=== PATIENT | female | born 1945 | race Caucasian/White ===

== ENCOUNTER 2017-02-18 18:50 | Emergency (ER) | payer OTHER ==
[~2017-02-18] VITALS: Ht 170.2 cm; Wt 106.6 kg
[2017-02-18 19:48] LABS: MCV 93.8 FL (83-99); MEAN PLAT.VOLUME 10.1 uM^3 (9.5-12.4); PLATELET COUNT 240 K/uL (156-360); RBC DIS.WIDTH-CV 13.7 % (11.8-14.6); RBC DIS.WIDTH-SD 47.3 % (39-53); WHITE BLOOD COUNT 7.5 K/uL (4.1-10.2)
[2017-02-18 19:59] LABS: CHLORIDE 108 mEq/L (99-109); POTASSIUM 4.2 mEq/L (3.7-5.4); SODIUM 145 mEq/L (136-147)
[2017-02-18 20:01] LABS: GLUCOSE 104 mg/dL (70-99)
[2017-02-18 20:02] LABS: ANION GAP 12 MEQ/L (2-14)
[2017-02-18 20:05] LABS: GFR ESTIMATE (CALCULATED) > 59 mL/min/
[2017-02-18 20:06] LABS: UREA NITROGEN (BUN) 13 mg/dL (9-23)
[2017-02-18 20:13] LABS: TROP-I INTERPRETATION NEGATIVE; TROPONIN-I < 0.01 ng/mL (0.0-0.30)
[2017-02-18] MEDS ORDERED: PREDNISONE20 MG PO (21:24)
[2017-02-18] MEDS ORDERED: PROAIR HFA8.5 GM IH (21:24)
[2017-02-18 21:35] VITALS: BP 144/90
== END 2017-02-18 21:37 | disposition home or self-care (01) ==
LOC: EME 18:50
DX: J44.9 Chronic obstructive pulmonary disease, unspecified (principal); J45.909 Unspecified asthma, uncomplicated; I10 Essential (primary) hypertension; Z87.891 Personal history of nicotine dependence
CPT/HCPCS: 71020; 80048; 83880; 84484; 85027; 93005; 94640; 99281; 99284; J7512

== ENCOUNTER 2017-11-10 15:47 | Inpatient (IN) | payer OTHER ==
[~2017-11-10] VITALS: Ht 170.2 cm; Wt 98.2 kg
[~2017-11-10 15:47] MED LIST: PREDNISONE20 MG PO; PROAIR HFA8.5 GM IH
[2017-11-10 16:43] LABS: BASOPHIL (%) 0.2 % (0-1); EOSINOPHIL (%) 0.3 % (0-5); HEMATOCRIT 42.6 % (36.0-46.0); HEMOGLOBIN 13.8 G/DL (11.9-15.5); IMMATURE GRANULOCYTE (%) 0.5 % (0.0-0.7); LYMPHOCYTE (%) 11.9 % (15-42); LYMPHOCYTE COUNT 1.7 K/uL (1.0-2.8); MCH 30.4 PG (29.0-34.0); MCHC 32.4 G/DL (30.0-36.0); MCV 93.8 FL (83-99); MONOCYTE (%) 8.2 % (3-12); MONOCYTE COUNT 1.2 K/uL (0-0.8); NEUTROPHIL (%) 78.9 % (45-76); PLATELET COUNT 321 K/uL (156-360); RBC DIS.WIDTH-CV 13.4 % (11.8-14.6); RBC DIS.WIDTH-SD 46.3 % (39-53); RED BLOOD COUNT 4.54 M/uL (3.80-5.20)
[2017-11-10 16:47] LABS: CHLORIDE 107 mEq/L (99-109); POTASSIUM 3.5 mEq/L (3.7-5.4); SODIUM 140 mEq/L (136-147)
[2017-11-10 16:49] LABS: GLUCOSE 136 mg/dL (70-99)
[2017-11-10 16:53] LABS: CREATININE 0.7 mg/dL (0.6-1.3); GFR ESTIMATE (CALCULATED) > 59 mL/min/
[2017-11-10 16:54] LABS: UREA NITROGEN (BUN) 15 mg/dL (9-23)
[2017-11-10 17:00] LABS: TROP-I INTERPRETATION NEGATIVE; TROPONIN-I 0.02 ng/mL (0.0-0.30)
[2017-11-10] MEDS ORDERED: LEVOTHYROXINE200 MC1 PO (20:06)
[2017-11-10] MEDS ORDERED: VALSARTAN160 MG PO (20:06)
[2017-11-10] MEDS ORDERED: MONTELUKAST SOD10 MG PO (20:08)
[2017-11-10] MEDS ORDERED: INCRUSE ELLI62.5 MCG IH (20:08)
[2017-11-10] MEDS ORDERED: ADVAIR 250/501 DISK IH (20:09)
[2017-11-10] MEDS ORDERED: ALBUTEROL2.5 MG/3 M IH (20:12)
[2017-11-10 21:56] VITALS: BP 171/91
[2017-11-10 23:12] VITALS: BP 143/73
[2017-11-11 03:07] VITALS: BP 137/76
[2017-11-11 07:50] VITALS: BP 125/91
[2017-11-11 16:11] VITALS: BP 134/65
[2017-11-11 20:42] VITALS: BP 122/66
[2017-11-12 00:30] VITALS: BP 127/68
[2017-11-12 06:04] VITALS: BP 132/70
[2017-11-12 07:01] LABS: BASOPHIL (%) 0.1 % (0-1); EOSINOPHIL (%) 0 % (0-5); HEMATOCRIT 40.4 % (36.0-46.0); HEMOGLOBIN 12.6 G/DL (11.9-15.5); IMMATURE GRANULOCYTE (%) 0.9 % (0.0-0.7); LYMPHOCYTE COUNT 0.8 K/uL (1.0-2.8); MCH 29.8 PG (29.0-34.0); MCHC 31.2 G/DL (30.0-36.0); MCV 95.5 FL (83-99); MONOCYTE (%) 3.5 % (3-12); MONOCYTE COUNT 0.5 K/uL (0-0.8); NEUTROPHIL (%) 89.5 % (45-76); NEUTROPHIL COUNT 11.7 K/uL (1.8-6.4); PLATELET COUNT 345 K/uL (156-360); RBC DIS.WIDTH-CV 13.9 % (11.8-14.6); RBC DIS.WIDTH-SD 48.7 % (39-53); RED BLOOD COUNT 4.23 M/uL (3.80-5.20); WHITE BLOOD COUNT 13.1 K/uL (4.1-10.2)
[2017-11-12 07:17] LABS: CHLORIDE 107 MEQ/L (99-109); CREATININE 0.7 MG/DL (0.6-1.3); GFR ESTIMATE (CALCULATED) > 59 mL/min/; GLUCOSE 153 mg/dL (70-99); SODIUM 142 MEQ/L (136-147); UREA NITROGEN (BUN) 17 mg/dL (9-23)
[2017-11-12 08:26] VITALS: BP 120/61
[2017-11-12 12:00] VITALS: BP 129/69
[2017-11-12 16:16] VITALS: BP 132/65
[2017-11-12 20:05] VITALS: BP 142/74
[2017-11-13 00:01] VITALS: BP 156/69
[2017-11-13 06:59] LABS: BASOPHIL (%) 0.1 % (0-1); EOSINOPHIL (%) 0 % (0-5); HEMOGLOBIN 12.4 G/DL (11.9-15.5); IMMATURE GRANULOCYTE (%) 1.1 % (0.0-0.7); LYMPHOCYTE (%) 5.2 % (15-42); LYMPHOCYTE COUNT 0.6 K/uL (1.0-2.8); MCH 30.6 PG (29.0-34.0); MCHC 31.8 G/DL (30.0-36.0); MCV 96.3 FL (83-99); MONOCYTE (%) 3.5 % (3-12); MONOCYTE COUNT 0.4 K/uL (0-0.8); NEUTROPHIL (%) 90.1 % (45-76); NEUTROPHIL COUNT 10.5 K/uL (1.8-6.4); PLATELET COUNT 316 K/uL (156-360); RBC DIS.WIDTH-SD 49.5 % (39-53); RED BLOOD COUNT 4.05 M/uL (3.80-5.20); WHITE BLOOD COUNT 11.6 K/uL (4.1-10.2)
[2017-11-13 07:19] VITALS: BP 144/74
[2017-11-13 07:23] LABS: CHLORIDE 106 MEQ/L (99-109); CREATININE 0.7 MG/DL (0.6-1.3); GFR ESTIMATE (CALCULATED) > 59 mL/min/; GLUCOSE 150 mg/dL (70-99); POTASSIUM 4.8 MEQ/L (3.7-5.4); SODIUM 140 MEQ/L (136-147); UREA NITROGEN (BUN) 23 mg/dL (9-23)
[2017-11-13 11:30] VITALS: BP 155/79
[2017-11-13 15:00] VITALS: BP 158/74
[2017-11-13 19:30] VITALS: BP 163/86
[2017-11-14] VITALS (8 sets, daily range): BP systolic 148–185; BP diastolic 70–92
[2017-11-15 03:24] VITALS: BP 156/89
[2017-11-15 06:35] LABS: BASOPHIL (%) 0.2 % (0-1); EOSINOPHIL (%) 0.4 % (0-5); HEMATOCRIT 41.8 % (36.0-46.0); HEMOGLOBIN 13.5 G/DL (11.9-15.5); IMMATURE GRANULOCYTE (%) 1.9 % (0.0-0.7); LYMPHOCYTE (%) 24.5 % (15-42); LYMPHOCYTE COUNT 2.2 K/uL (1.0-2.8); MCH 30.1 PG (29.0-34.0); MCHC 32.3 G/DL (30.0-36.0); MCV 93.1 FL (83-99); MONOCYTE (%) 11.6 % (3-12); NEUTROPHIL (%) 61.4 % (45-76); NEUTROPHIL COUNT 5.5 K/uL (1.8-6.4); PLATELET COUNT 329 K/uL (156-360); RBC DIS.WIDTH-SD 48.2 % (39-53); RED BLOOD COUNT 4.49 M/uL (3.80-5.20); WHITE BLOOD COUNT 8.9 K/uL (4.1-10.2)
[2017-11-15 07:15] LABS: CHLORIDE 104 MEQ/L (99-109); CREATININE 0.7 MG/DL (0.6-1.3); GFR ESTIMATE (CALCULATED) > 59 mL/min/; SODIUM 141 MEQ/L (136-147); UREA NITROGEN (BUN) 16 mg/dL (9-23)
[2017-11-15 07:17] LABS: GLUCOSE 96 mg/dL (70-99); POTASSIUM 3.7 MEQ/L (3.7-5.4)
[2017-11-15 07:41] VITALS: BP 172/89
[2017-11-15 12:05] VITALS: BP 187/99
[2017-11-15 16:09] VITALS: BP 139/80
[2017-11-16 04:30] VITALS: BP 137/73
[2017-11-16 07:39] VITALS: BP 157/81
[2017-11-16 12:07] VITALS: BP 155/88
[2017-11-16] MEDS ORDERED: DOXYCYCLINE HY100 M3 PO (12:11)
[2017-11-16] MEDS ORDERED: DUONEB 2.5-0.5 M3 ML AEROSOL ×2 (12:11)
[2017-11-16] MEDS ORDERED: BENZONATATE100 MG PO (12:12)
[2017-11-16] MEDS ORDERED: LOVENOX40 MG/0.4 SC (12:12)
[2017-11-16] MEDS ORDERED: TYLENOL REGULA325 MG PO (12:12)
[2017-11-16] MEDS ORDERED: PREDNISONE20 MG PO (12:12)
== END 2017-11-16 15:12 | DRG 194 ==
LOC: EME 15:47 → EDOF 20:08 → 5EAST 20:08 → ENRESERV 20:09 → 5EAST 21:38 → ENRESERV 21:58 → CANRESERV 21:58 → 5EAST 11-16 15:12
PROVIDERS: Family Medicine; Physician Assistant
DX: J18.1 Lobar pneumonia, unspecified organism (principal); J44.0 Chronic obstructive pulmonary disease with (acute) lower respiratory infection; J44.1 Chronic obstructive pulmonary disease with (acute) exacerbation; J96.11 Chronic respiratory failure with hypoxia; J20.9 Acute bronchitis, unspecified; I10 Essential (primary) hypertension; E03.9 Hypothyroidism, unspecified; J90 Pleural effusion, not elsewhere classified; E78.5 Hyperlipidemia, unspecified; K21.9 Gastro-esophageal reflux disease without esophagitis; J98.11 Atelectasis; E66.9 Obesity, unspecified; Z68.33 Body mass index [BMI] 33.0-33.9, adult; Z99.81 Dependence on supplemental oxygen; Z87.891 Personal history of nicotine dependence
CPT/HCPCS: 71045; 71046; 71275; 80048; 80202; 83605; 84484; 85025; 87040; 87502; 87631; 93005; 94640; 94640 76; 94760; 94799; 97530 GP; 99202; 99281; 99285; J0456; J1650; J2405; J2930; J3370; J7050; J7512

== ENCOUNTER 2018-03-11 12:27 | Inpatient (IN) | payer OTHER ==
[~2018-03-11] VITALS: Ht 170.2 cm; Wt 99.0 kg
[~2018-03-11 12:27] MED LIST changes: +ADVAIR 250/501 DISK IH; +ALBUTEROL2.5 MG/3 M IH; +BENZONATATE100 MG PO; +DOXYCYCLINE HY100 M3 PO; +DUONEB 2.5-0.5 M3 ML AEROSOL; +INCRUSE ELLI62.5 MCG IH; +LEVOTHYROXINE200 MC1 PO; +LOVENOX40 MG/0.4 SC; +MONTELUKAST SOD10 MG PO; +TYLENOL REGULA325 MG PO; +VALSARTAN160 MG PO
[2018-03-11 13:13] LABS: HEMATOCRIT 44.2 % (36.0-46.0); HEMOGLOBIN 14.6 G/DL (11.9-15.5); MCH 31.1 PG (29.0-34.0); PLATELET COUNT 227 K/uL (156-360); RBC DIS.WIDTH-CV 13.3 % (11.8-14.6); RBC DIS.WIDTH-SD 46.6 % (39-53); WHITE BLOOD COUNT 6.6 K/uL (4.1-10.2)
[2018-03-11 13:22] LABS: CHLORIDE 105 mEq/L (99-109); POTASSIUM 4.4 mEq/L (3.7-5.4); SODIUM 140 mEq/L (136-147)
[2018-03-11 13:24] LABS: GLUCOSE 106 mg/dL (70-99); TOTAL PROTEIN 8.4 g/dL (6.4-8.3)
[2018-03-11 13:26] LABS: TOTAL BILIRUBIN 0.6 mg/dL (0.0-1.0)
[2018-03-11 13:28] LABS: ALKALINE PHOSPHATASE 122 IU/L (3-129); CREATININE 0.7 mg/dL (0.6-1.3); GFR ESTIMATE (CALCULATED) > 59 mL/min/
[2018-03-11 13:29] LABS: AST (GOT) 103 IU/L (2-34); UREA NITROGEN (BUN) 9 mg/dL (9-23)
[2018-03-11 13:31] LABS: ALT (GPT) 177 IU/L (3-49)
[2018-03-11 13:33] LABS: TROP-I INTERPRETATION NEGATIVE; TROPONIN-I < 0.01 ng/mL (0.0-0.30)
[2018-03-11] MEDS ORDERED: PROVENTIL,2.5 MG/3 M IH (14:13)
[2018-03-11] MEDS ORDERED: INCRUSE ELLI62.5 MCG IH (14:14)
[2018-03-11] MEDS ORDERED: MOTRIN800 MG PO (14:14)
[2018-03-11] MEDS ORDERED: ZANAFLEX4 MG PO (14:14)
[2018-03-11 16:45] VITALS: BP 174/86
[2018-03-11 19:15] VITALS: BP 184/93
[2018-03-11 22:51] VITALS: BP 162/78
[2018-03-12] VITALS (8 sets, daily range): BP systolic 133–187; BP diastolic 72–92
[2018-03-12 05:36] LABS: BASOPHIL (%) 0.2 % (0-1); EOSINOPHIL (%) 0 % (0-5); HEMATOCRIT 46.9 % (36.0-46.0); HEMOGLOBIN 15.4 G/DL (11.9-15.5); LYMPHOCYTE (%) 15.1 % (15-42); LYMPHOCYTE COUNT 0.7 K/uL (1.0-2.8); MCH 30.1 PG (29.0-34.0); MCHC 32.8 G/DL (30.0-36.0); MCV 91.8 FL (83-99); MONOCYTE (%) 2.3 % (3-12); MONOCYTE COUNT 0.1 K/uL (0-0.8); NEUTROPHIL (%) 81.4 % (45-76); NEUTROPHIL COUNT 3.9 K/uL (1.8-6.4); PLATELET COUNT 253 K/uL (156-360); RBC DIS.WIDTH-CV 13.6 % (11.8-14.6); RBC DIS.WIDTH-SD 46.5 % (39-53); RED BLOOD COUNT 5.11 M/uL (3.80-5.20); WHITE BLOOD COUNT 4.8 K/uL (4.1-10.2)
[2018-03-12 05:59] LABS: CHLORIDE 104 MEQ/L (99-109); CREATININE 0.6 MG/DL (0.6-1.3); GFR ESTIMATE (CALCULATED) > 59 mL/min/; POTASSIUM 3.9 MEQ/L (3.7-5.4); SODIUM 138 MEQ/L (136-147); UREA NITROGEN (BUN) 13 mg/dL (9-23)
[2018-03-12 06:01] LABS: GLUCOSE 161 mg/dL (70-99)
[2018-03-13 03:51] VITALS: BP 151/79
[2018-03-13 06:39] LABS: BASOPHIL (%) 0.1 % (0-1); EOSINOPHIL (%) 0 % (0-5); HEMATOCRIT 45.7 % (36.0-46.0); HEMOGLOBIN 14.7 G/DL (11.9-15.5); IMMATURE GRANULOCYTE (%) 0.4 % (0.0-0.7); LYMPHOCYTE (%) 7.6 % (15-42); MCH 29.8 PG (29.0-34.0); MCHC 32.2 G/DL (30.0-36.0); MCV 92.5 FL (83-99); MONOCYTE COUNT 0.4 K/uL (0-0.8); NEUTROPHIL (%) 88.9 % (45-76); NEUTROPHIL COUNT 11.3 K/uL (1.8-6.4); PLATELET COUNT 295 K/uL (156-360); RBC DIS.WIDTH-CV 13.9 % (11.8-14.6); RBC DIS.WIDTH-SD 47.4 % (39-53); RED BLOOD COUNT 4.94 M/uL (3.80-5.20); WHITE BLOOD COUNT 12.7 K/uL (4.1-10.2)
[2018-03-13 07:03] LABS: CHLORIDE 103 MEQ/L (99-109); CREATININE 0.7 MG/DL (0.6-1.3); GFR ESTIMATE (CALCULATED) > 59 mL/min/; GLUCOSE 147 mg/dL (70-99); POTASSIUM 4.3 MEQ/L (3.7-5.4); SODIUM 137 MEQ/L (136-147)
[2018-03-13 07:04] LABS: UREA NITROGEN (BUN) 25 mg/dL (9-23)
[2018-03-13 07:26] VITALS: BP 145/75
[2018-03-13 11:14] VITALS: BP 145/75
[2018-03-13 16:08] VITALS: BP 148/70
[2018-03-13 20:12] VITALS: BP 127/69
[2018-03-13 23:08] VITALS: BP 147/78
[2018-03-14 05:38] VITALS: BP 151/79
[2018-03-14 08:48] VITALS: BP 117/75
[2018-03-14 11:35] VITALS: BP 147/76
[2018-03-14 15:09] VITALS: BP 134/74
[2018-03-14 19:37] VITALS: BP 125/67
[2018-03-15] VITALS (7 sets, daily range): BP systolic 120–147; BP diastolic 60–86
[2018-03-15 06:14] LABS: BASOPHIL (%) 0.1 % (0-1); EOSINOPHIL (%) 0.1 % (0-5); HEMATOCRIT 45.9 % (36.0-46.0); HEMOGLOBIN 14.7 G/DL (11.9-15.5); IMMATURE GRANULOCYTE (%) 0.3 % (0.0-0.7); LYMPHOCYTE (%) 24.8 % (15-42); LYMPHOCYTE COUNT 2.3 K/uL (1.0-2.8); MCH 30.1 PG (29.0-34.0); MCV 93.9 FL (83-99); MONOCYTE (%) 12.3 % (3-12); MONOCYTE COUNT 1.1 K/uL (0-0.8); NEUTROPHIL (%) 62.4 % (45-76); NEUTROPHIL COUNT 5.7 K/uL (1.8-6.4); PLATELET COUNT 273 K/uL (156-360); RBC DIS.WIDTH-CV 13.7 % (11.8-14.6); RBC DIS.WIDTH-SD 47.4 % (39-53); RED BLOOD COUNT 4.89 M/uL (3.80-5.20); WHITE BLOOD COUNT 9.1 K/uL (4.1-10.2)
[2018-03-15 06:40] LABS: CHLORIDE 106 MEQ/L (99-109); CREATININE 0.7 MG/DL (0.6-1.3); GFR ESTIMATE (CALCULATED) > 59 mL/min/; POTASSIUM 4.1 MEQ/L (3.7-5.4); SODIUM 141 MEQ/L (136-147); UREA NITROGEN (BUN) 30 mg/dL (9-23)
[2018-03-15 06:42] LABS: GLUCOSE 90 mg/dL (70-99)
[2018-03-16 03:38] VITALS: BP 141/79
[2018-03-16 07:57] VITALS: BP 142/74
[2018-03-16] MEDS ORDERED: PREDNISONE1 MG PO (12:11)
[2018-03-16] MEDS ORDERED: LEVAQUIN750 MG PO (12:11)
[2018-03-16 12:29] VITALS: BP 135/65
== END 2018-03-16 13:15 | disposition home or self-care (01) | DRG 190 ==
LOC: EME 12:27 → 4EAST 13:33 → EDOF 13:33 → ENRESERV 13:41 → 4EAST 16:38 → ENRESERV 03-12 11:24 → 3EAST 03-12 12:50
PROVIDERS: Emergency Medicine Emergency Medical Services; Family Medicine
DX: J44.1 Chronic obstructive pulmonary disease with (acute) exacerbation (principal); J96.11 Chronic respiratory failure with hypoxia; J44.0 Chronic obstructive pulmonary disease with (acute) lower respiratory infection; J15.9 Unspecified bacterial pneumonia; I10 Essential (primary) hypertension; Z99.81 Dependence on supplemental oxygen; M25.511 Pain in right shoulder; Z90.49 Acquired absence of other specified parts of digestive tract; Z87.891 Personal history of nicotine dependence; Z88.0 Allergy status to penicillin; Z88.1 Allergy status to other antibiotic agents; Z88.8 Allergy status to other drugs, medicaments and biological substances; E03.9 Hypothyroidism, unspecified; Z68.34 Body mass index [BMI] 34.0-34.9, adult
CPT/HCPCS: 71045; 80048; 80053; 83880; 84484; 85025; 85027; 93005; 94640; 94640 76; 94760; 94799; 99202; 99281; 99285; J0360; J1650; J1956; J2930; J7040; J7512